=== PATIENT | female | born 1955 | race Caucasian/White ===

== ENCOUNTER → 2017-10-12 | Outpatient (CLI) | payer OTHER ==
--- NOTE | 2017-10-13 02:42 | MRI ---
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 PROCEDURE: MR LUMBAR SPINE WITHOUT IV CONTRAST. INDICATION: LOW BACK PAIN. COMPARISON: None. TECHNIQUE: Multiplanar T1 and T2 MRI images of the lumbar spine were acquired without administration of intravenous contrast. FINDINGS: The lumbar vertebral bodies demonstrate normal height and stature. There is 4 mm anterolisthesis of L4 on L5 which is likely degenerative given facet arthropathy. Mild intervertebral disc space height loss at L1-L3 and L4-L5. Normal marrow signal. The conus terminates at the level of L1-L2. The cauda equina nerve roots are unremarkable. The partially visualized thoracic cord is normal. L1-L2: Mild disc bulge without spinal canal stenosis. No significant neural foraminal stenosis. L2-L3: No spinal canal or neural foraminal stenosis. Mild bilateral facet arthropathy. L3-L4: No spinal canal or neural foraminal stenosis. Mild/moderate bilateral facet arthropathy. L4-L5: Grade 1 anterolisthesis of L4 on L5 with pseudodisc bulge and ligamentous hypertrophy. There is mild narrowing of the spinal canal. Severe bilateral facet arthropathy with soft tissue edema surrounding the left facet joint. No significant foraminal stenosis. L5-S1: Disc bulge without spinal canal stenosis. Mild bilateral facet arthropathy resulting in mild left foraminal narrowing. No significant right foraminal stenosis. The common bile duct is mildly dilated measuring up to 8 mm. The remainder of the partially visualized abdominopelvic organs are unremarkable. IMPRESSION: Mild multilevel degenerative changes of the lumbar spine most pronounced at L4-L5 where there is grade 1 anterolisthesis and severe bilateral facet arthropathy. Soft tissue edema seen adjacent to the left facet joint. Mild left foraminal narrowing at L5-S1. Mild spinal canal narrowing L4-L5. Electronically signed by: Jason Enriquez MD 10/13/2017 2:[address] [facility]
== END | disposition home or self-care (01) ==
LOC: MRI 10:04
PROVIDERS: ATTEND General Practice
DX: M51.37 Other intervertebral disc degeneration, lumbosacral region (principal)

== ENCOUNTER → 2019-05-30 | Outpatient (CLI) | payer OTHER ==
--- NOTE | 2019-05-30 14:01 | MRI ---
Study: MRI of the Left Knee. Indication: M23.92 Technique: Multiplanar, multi sequence MRI of the left knee was obtained without intravenous contrast. Comparison: None. Findings: ACL, PCL, MCL, and lateral collateral ligament complex intact. High-grade radial tearing posterior root attachment medial meniscus with near complete transection. Scattered degenerative change throughout the lateral meniscus without tear. Grade 3 chondral thinning and surface irregularity throughout the medial compartment. Grade 2 and mild grade 3 chondrosis throughout the lateral compartment. Tendinosis quadriceps tendon insertion with mild interstitial fissuring. Patella normally located. Grade 4 chondral loss throughout the majority of the patellar apex extending into the medial and lateral facets with patchy cortical remodeling and subchondral cystic change. Moderate size knee effusion. No acute fracture. Small Gutierrez's cyst. Impression: High-grade radial tearing posterior root attachment medial meniscus. Grade 3 chondrosis throughout the medial compartment with grade 2/3 changes of the lateral compartment. Tendinosis and mild interstitial fissuring quadriceps insertion. Extensive grade 4 chondral loss and cortical remodeling of the midline patella. Moderate size knee effusion. Electronically signed by: Noah Díaz MD 05/30/2019 1:59 PM CDT
== END ==
LOC: MRI 10:00
PROVIDERS: ATTEND Nurse Practitioner Family
DX: M23.92 Unspecified internal derangement of left knee (principal); S83.242A Other tear of medial meniscus, current injury, left knee, initial encounter; M93.962 Osteochondropathy, unspecified, left lower leg; M76.892 Other specified enthesopathies of left lower limb, excluding foot; M77.9 Enthesopathy, unspecified

== ENCOUNTER → 2019-06-19 | Outpatient (CLI) | payer OTHER ==
--- NOTE | 2019-06-20 20:41 | MAM ---
EXAM DESCRIPTION: 3D Screening BILATERAL : Digital Mammography. CLINICAL HISTORY: 64 years Female ANNUAL SCREENING . No complaints. No personal or family history of breast cancer. Childbirth. Postmenopausal 20+ years no HRT. Lifetime risk of developing breast cancer (Tyrer-Cuzick model)(%): 4.9. COMPARISON: Baseline study at this facility. No prior reports available. TECHNIQUE: Bilateral CC and MLO projection full-field images, digital tomosynthesis mammographic technique. Bilateral digital 2-D full-field MLO images. CAD not available for tomosynthesis or 2-D images. FINDINGS: The breast parenchymal density pattern is: Scattered areas of fibroglandular density. No skin thickening or nipple retraction. Bilateral solitary microcalcifications. Bilateral vascular calcifications. Irregular nodule in the lateral aspect of the middle third of the left breast approximately 3:00 position and 7 cm from the nipple. Posterior lymph node right breast. No new focal, stellate mass or density, focal asymmetry , and no suspicious microcalcifications right breast. IMPRESSION: BI-RADS CATEGORY: 0 - INCOMPLETE- Need additional imaging evaluation. FOLLOW-UP: Recall for additional imaging: Targeted left breast ultrasound of the region of interest. Optional diagnostic digital tomosynthesis if indicated by ultrasound findings.. Written communication concerning the IMPRESSION and Follow-up, will be mailed to the patient and referring health care provider. Electronically signed by: Chris Hernandez MD 06/20/2019 8:40 PM CDT
== END ==
LOC: MAMMO 09:17
PROVIDERS: ATTEND Nurse Practitioner Family
DX: Z12.31 Encounter for screening mammogram for malignant neoplasm of breast (principal)

== ENCOUNTER → 2019-06-22 | Outpatient (CLI) | payer OTHER ==
--- NOTE | 2019-06-22 11:09 | RAD ---
EXAM DESCRIPTION: Pelvis, single view CLINICAL HISTORY: PAIN IN LEFT HIP FINDINGS/ IMPRESSION: No fracture of the proximal femora or pelvis. Mild osteoarthritis of the bilateral sacroiliac joints and pubic symphysis Normal mineralization. No lytic or blastic bony lesion. Degenerative changes are present in the lower lumbar spine facet joints Electronically signed by: Uriel Ramsey MD 06/22/2019 11:07 AM CDT
--- NOTE | 2019-06-22 11:10 | RAD ---
EXAM DESCRIPTION: Left knee, 4 radiographs CLINICAL HISTORY: PAIN IN LEFT KNEE FINDINGS/ IMPRESSION: Small marginal osteophytes tricompartmental. No advanced arthrosis or acute osteochondral lesion femorotibial. A subchondral lucency measuring 4 to 5 mm of the dorsal patella seen on the lateral projection likely chronic osteochondral lesion/cyst Small suprapatellar joint effusion. Normal mineralization. No fracture Electronically signed by: Uriel Ramsey MD 06/22/2019 11:08 AM CDT
== END ==
LOC: RAD 08:28
PROVIDERS: ATTEND Orthopaedic Surgery
DX: M25.762 Osteophyte, left knee (principal); M22.92 Unspecified disorder of patella, left knee; M25.462 Effusion, left knee; M47.896 Other spondylosis, lumbar region; M47.898 Other spondylosis, sacral and sacrococcygeal region; M25.552 Pain in left hip

== ENCOUNTER → 2019-07-05 | Outpatient (CLI) | payer OTHER ==
--- NOTE | 2019-07-06 09:37 | US ---
EXAM DESCRIPTION: Breast,Left: Ultrasound CLINICAL HISTORY: 64 yearsFemaleABNORMAL MAMMO . Irregular nodule lateral middle third left breast on bilateral screening breast tomosynthesis. Lifetime risk of developing breast cancer (Tyrer-Cuzick model)(%): Not calculated COMPARISON: Bilateral screening digital breast tomosynthesis 06/19/2019. TECHNIQUE: Transcutaneous scanning of the left breast utilizing cantu-scale and Doppler modes. Scanning performed by the harness brusher and Dr. Hernandez. FINDINGS: Ultrasound: Scanning of the lateral left breast with emphasis on the upper outer quadrant. Circumscribed soft tissue mass measuring 5.2 x 3.3 x 4.4 mm with large echogenic homogeneous component with minimal vascularity. Questionable outgrowth of the hypoechoic capsule. This is elongated hypoechoic region measures approximately 7 mm. Most likely a lymph node but close follow-up should BE considered. IMPRESSION: BI-RADS CATEGORY: 3 - PROBABLY BENIGN. Management: Short interval (6-month) diagnostic left breast tomosynthesis and targeted left breast ultrasound. The FINDINGS and the FOLLOW-UP plan were reviewed in person with the patient after the examination. Written communication explaining the IMPRESSION and FOLLOW-UP will be mailed to the patient and referring care provider. Electronically signed by: Chris Hernandez MD 07/06/2019 9:35 AM CDT
== END ==
LOC: MAMMO 12:30
PROVIDERS: ATTEND Nurse Practitioner Family
DX: R92.8 Other abnormal and inconclusive findings on diagnostic imaging of breast (principal)

== ENCOUNTER 2019-09-05 05:49 | Day surgery (SDC) | payer OTHER ==
--- NOTE | 2019-08-14 11:27 | RAD ---
EXAM DESCRIPTION: Chest,2 Views CLINICAL HISTORY: 64 years Female, Pre Op COMPARISON: None. IMPRESSION: The heart is enlarged, without failure. Atherosclerosis in the thoracic aorta. The lungs are hyperexpanded. There is no airspace consolidation, pleural effusion, or pneumothorax. No acute osseous abnormality. Electronically signed by: Oscar Zheng MD 08/14/2019 11:26 AM CDT
--- NOTE | 2019-09-01 09:36 | HP ---
CHIEF COMPLAINT: Left knee pain. HISTORY OF PRESENT ILLNESS: Jimena is a 64-year-old female with a history of left knee pain that has been going on for about 4 to 5 months. This was acute in onset. She currently has pain that seems to be most prominent along the medial aspect. She has had conservative measures, however, has failed to gain relief. Her pain is a pretty consistent 3 on the pain scale, although it does radiate higher. She has no neurologic symptoms associated with this. Aggravating factors include weightbearing and range of motion. Alleviating factors include rest and anti-inflammatories, although this is not complete. She does also have clicking in the knee. We discussed risks, benefits and alternatives to operative therapy. After discussing that, she has given informed consent for knee arthroscopy. PAST SURGICAL HISTORY: 1. Hysterectomy. 2. Cholecystectomy. 3. Gastric bypass. MEDICATIONS: 1. Quetiapine. 2. Meloxicam. 3. Nexium. PAIN CONTRACT: None. ALLERGIES: NO KNOWN DRUG ALLERGIES. CODE STATUS: Full code. IMMUNIZATIONS: Up to date. SOCIAL HISTORY: The patient does not use alcohol or recreational drugs. She does smoke. FAMILY HISTORY: None pertinent to today's complaint. REVIEW OF SYSTEMS: Negative except for GERD, anxiety, foot cramps and hypertension. Otherwise, negative as indicated in the History of Present Illness. HEENT: The patient reports no symptoms. RESPIRATORY: The patient reports no symptoms. CARDIOVASCULAR: The patient reports no symptoms. GASTROINTESTINAL: The patient reports no symptoms GENITOURINARY: The patient reports no symptoms. MUSCULOSKELETAL: Negative except as noted in History of Present Illness. SKIN: The patient reports no symptoms. NEUROLOGIC: The patient reports no symptoms. PHYSICAL EXAMINATION: VITAL SIGNS: Blood pressure 150/82. Pulse 60. Height 5'6". Weight 291 pounds. BMI 35. MENTAL STATUS: The patient is awake, alert, and is able to give a good history and participate in the physical. The patient is oriented to person, place and time. SKIN: Normal tone and turgor. HEENT: Normocephalic, atraumatic. Pupils equal, round and reactive. Mucosal membranes are moist. NECK: Normal range of motion. No thyromegaly, no lymphadenopathy. CHEST: Normal respiratory excursion. CARDIAC: Regular rate and rhythm. No murmurs, rubs or gallops. MUSCULOSKELETAL: Bilateral upper extremities show full active range of motion without pain. She has intact sensation in both extremities and they are warm and well perfused. She has no crepitus, no malalignment and no deformity. She has intact skin in both upper extremities. Right lower extremity shows full range of motion of the hip, knee, ankle and digits. She has no pain, crepitus, malalignment or deformity. She has no varus or valgus of the knee. She has a negative anterior and negative posterior drawer. Strength is 5/5. Skin is intact. The left lower extremity shows full range of motion of the hip that is painless. She has severe pain to palpation on the medial aspect of the knee. She has intact sensation in the extremity. She walks with a slight antalgic gait. There is no varus or valgus laxity, no deformity or malalignment in the extremity. She has no significant effusion today. Strength is 5/5. Skin is intact in both lower extremities. RADIOLOGY: MRI shows a tear of the medial meniscus. She also has some arthritic changes. ASSESSMENT: 1. Medial meniscus tear. 2. Osteoarthritis. PLAN: The plan at this point is for knee arthroscopy. We have discussed the risks, benefits, and alternatives to that and the patient has given informed consent. #[id number] [facility]
[2019-09-05] MEDS ORDERED: ONDANSETRON INJ 4 MG/2 ML VIAL IV ONE (10:00)
[2019-09-05] MEDS ORDERED: PROPOFOL 200 MG/20 ML VIAL IV ONE (10:00)
[2019-09-05] MEDS ORDERED: LIDOCAINE 1% 10 ML VIAL INJ ONE (10:00)
[2019-09-05] MEDS ORDERED: KETOROLAC TROMETHAMINE INJ 30 MG/ML VIAL IV ONE (10:00)
[2019-09-05] MEDS ORDERED: ceFAZolin SODIUM 1 GM VIAL ONE ×3 (11:04→14:00)
[2019-09-05] MEDS ORDERED: LACTATED RINGERS 1,000 ML ONE (11:04)
[2019-09-05] MEDS ORDERED: SODIUM CHL 0.9% 100ML MINI-BAG 100 ML IVPB ONE (11:04)
[2019-09-05] MEDS ORDERED: BUPIVACAINE LIPOSOME 13.3 MG/ML VIAL INJ ONE ×2 (12:10→14:08)
[2019-09-05] MEDS ORDERED: VANCOMYCIN HCL INJ 1,000 MG VIAL IVPB ONE (12:10)
[2019-09-05] MEDS ORDERED: fentaNYL CITRATE INJ 50 MCG/ML AMP ONE (13:15)
[2019-09-05] MEDS ORDERED: MIDAZOLAM INJ 2 MG/2 ML VIAL ONE (13:15)
[2019-09-05] MEDS: BUPIVACAINE 0.5% 30 ML VIAL INJ ONE ×2 (13:30→14:12)
[2019-09-05] MEDS: MORPHINE SULFATE INJ 10 MG/ML VIAL ONE ×3 (14:33→14:43)
[2019-09-05] MEDS ORDERED: HYDROcodone 5MG/APAP 325MG 1 EA TAB ONE (15:41)
[2019-09-05 16:30] VITALS: BP 145/75; TEMP 98.9; O2SAT 97
--- NOTE | 2019-09-07 08:20 | OP ---
DATE OF PROCEDURE: 09/05/19. PREOPERATIVE DIAGNOSIS: 1. Meniscus tear. 2. Chondromalacia. POSTOPERATIVE DIAGNOSIS: 1. Medial meniscus tear. 2. Osteoarthritis of the medial compartment. 3. Osteoarthritis of the patellofemoral compartment. PROCEDURE: 1. Partial medial meniscectomy. 2. Debridement. SURGEON: Devin Avina MD. PERSONNEL RECRUITER: Chris Pacheco CST, SA-C. ANESTHESIA: General anesthesia. COMPLICATIONS: None. FINDINGS: 1. Complex tear of the medial meniscus involving the body extending posteriorly. 2. Full thickness cartilage loss in the medial femoral region. 3. Normal anterior cruciate ligament. 4. Normal posterior cruciate ligament. 5. Softening of the lateral compartment cartilage. 6. Normal lateral gutter. 7. Full thickness cartilage loss at the patellofemoral joint. 8. Normal suprapatellar pouch. 9. Normal medial gutter. INDICATION: Jimena has had pain that has been refractory to conservative measures. Because of her pain and ongoing symptoms, we discussed the risks, benefits and alternatives to operative therapy. She gave informed consent for that. PROCEDURE: The patient was brought to the Operating Room and placed in supine position. General anesthesia was induced and the patient's leg was sterilely prepped and draped. Following prepping and draping, standard anteromedial and anterolateral portals were established. Diagnostic arthroscopy was carried out with the above findings. Following the diagnostic arthroscopy, attention was focused on the medial meniscus. A 3.5 mm full radius shaver was used to debride the medial meniscus. Following that, the shaver was used to debride the medial femoral compartment as well as the patellofemoral compartment, which was accessed through the medial portal. The wound was very thoroughly irrigated and closed with Nylon suture after draining of the knee. Sterile dressings were placed. The patient was awoken from anesthesia and taken to Recovery. POSTOPERATIVE PLAN: The patient will be non-weightbearing until followup with us in two days. #[id number] [facility]
== END 2019-09-05 16:25 | disposition home or self-care (01) ==
LOC: AMB 05:49
PROVIDERS: ATTEND Orthopaedic Surgery
DX: S83.232A Complex tear of medial meniscus, current injury, left knee, initial encounter (principal); M17.12 Unilateral primary osteoarthritis, left knee; E78.5 Hyperlipidemia, unspecified; K21.9 Gastro-esophageal reflux disease without esophagitis; F31.9 Bipolar disorder, unspecified; E53.9 Vitamin B deficiency, unspecified; Z90.710 Acquired absence of both cervix and uterus; Z98.84 Bariatric surgery status; Z90.49 Acquired absence of other specified parts of digestive tract; Z79.899 Other long term (current) drug therapy
CPT/HCPCS: 01400; 29881; 36415; 36416; 71046; 80048; 80307; 81001; 85025; 87070; 93005; J0690; J1885; J2250; J2270; J2405; J3010; J3370; J3490; J7050; J7120

== ENCOUNTER → 2019-09-29 | Outpatient (CLI) | payer OTHER ==
--- NOTE | 2019-09-29 12:57 | RAD ---
EXAM DESCRIPTION: Pelvis CLINICAL HISTORY: 64 years Female, PAIN IN LEFT HIP COMPARISON: None. TECHNIQUE: AP radiograph of the pelvis was performed. FINDINGS: The pelvic ring appears grossly intact on this single AP radiograph. Bilateral sacroiliac joints demonstrate mild degenerative changes. Bilateral hip joints also demonstrate moderate degenerative changes. The visualized lumbo-sacral spine demonstrates mild degenerative changes. A partially calcified lesion projecting over the left hemipelvis could represent a calcified uterine myoma. IMPRESSION: Single AP radiograph of the pelvis demonstrates grossly intact pelvic ring. Electronically signed by: Jorge Vera MD 09/29/2019 12:55 PM TRIPLE DRUM OPERATOR
--- NOTE | 2019-09-29 12:58 | RAD ---
EXAM DESCRIPTION: Hip,Left 2 Views CLINICAL HISTORY: 64 years Female, PAIN IN LEFT HIP COMPARISON: None available. FINDINGS: Mild diffuse osteopenia of the visualized bones noted. No acute fracture or dislocation. The femoral head is well contained in the acetabular fossa. Moderate osteoarthritic changes noted involving the left hip joint. The overlying soft tissues appear grossly unremarkable. IMPRESSION: 1. No acute fracture or dislocation. 2. Moderate osteoarthritic changes of the left hip joint. Electronically signed by: Jorge Vera MD 09/29/2019 12:57 PM [facility]
== END ==
LOC: RAD 08:01
PROVIDERS: ATTEND Orthopaedic Surgery
DX: M16.12 Unilateral primary osteoarthritis, left hip (principal)

== ENCOUNTER → 2019-10-05 | Outpatient (CLI) | payer OTHER ==
--- NOTE | 2019-10-05 15:12 | MRI ---
MRI left hip without contrast INDICATION: Hip pain muscle injury symptoms x1 year lifting injury TECHNIQUE: Noncontrast MR imaging left hip FINDINGS: Focal fluid/cystic change along the obturator externus and iliopsoas region anterior left hip most likely para labral cyst. This measures up to 13 mm in diameter reference axial series 201 image 25. There is also cam morphology femoral neck indicating cam-type femoral acetabular impingement. Additional cystic change is noted anteriorly above the left hip axial series 201 image 34 along the iliopsoas tendon sheath/bursa. Interstitial fissuring and tendinopathy of the gluteal tendons without complete rupture or retraction. Trace greater trochanteric bursal edema. No advanced arthrosis of the hips. Mild cystic change anterior superior acetabulum right hip. No sacroiliitis. Diffuse anterior superior labral tear left hip on the sagittal images related to the para labral cyst. No osteonecrosis or fracture. IMPRESSION: Diffuse anterior superior labral tear left hip with multilocular para labral cysts Mild trochanteric bursitis and gluteal tendinopathy No hamstring rupture or retraction No fracture or osteonecrosis Cam-type femoral acetabular impingement Electronically signed by: Abilio Roberson MD 10/05/2019 3:10 PM RN HOUSE SUPERVISOR
== END ==
LOC: MRI 14:00
PROVIDERS: ATTEND Orthopaedic Surgery
DX: S73.192A Other sprain of left hip, initial encounter (principal); M71.352 Other bursal cyst, left hip; M25.852 Other specified joint disorders, left hip

== ENCOUNTER → 2019-11-20 | Outpatient (CLI) | payer OTHER | LOC: LAB.O 08:16 | PROVIDERS: ATTEND Orthopaedic Surgery | DX: Z01.818 Encounter for other preprocedural examination (principal) ==

== ENCOUNTER → 2020-03-06 | Outpatient (CLI) | payer OTHER ==
--- NOTE | 2020-03-07 15:30 | US ---
EXAM DESCRIPTION: 3D Diagnostic, Left (accession [id number]), Breast,Left (accession [id number]): Ultrasound CLINICAL HISTORY: 65 yearsFemaleABNORMAL AND INCONCLUSIVE FINDINGS ON DIAGNOSTIC IMAGINE . Six-month follow-up for mass density left breast.. No palpable mass. No personal or family history of breast cancer. Menarche age 13. Childbirth age 19. Menopause age 43. No HRT. Lifetime risk of developing breast cancer (Tyrer-Cuzick model)(%): 4.7. COMPARISON: Bilateral screening digital breast tomosynthesis May 2019 and diagnostic left breast ultrasound June 2019. TECHNIQUE: Left LM, CC, and MLO projection full-field images, digital tomosynthesis technique. Left 2-D digital full-field images: LM, CC, and MLO projections CAD available for 2-D images.. Transcutaneous scanning of the left breast utilizing cantu-scale and Doppler modes. Scanning performed by the linseed oil order filler with observation by Dr. Hernandez. FINDINGS: The breast parenchymal density pattern is: Scattered areas of fibroglandular density. No skin thickening or nipple retraction vascular calcifications. Solitary microcalcifications. Lobular mass density middle third left breast 2:30 clock position 8 cm from the nipple. No new focal, stellate mass or density, focal asymmetry , and no suspicious microcalcifications left breast Ultrasound: Scanning lateral left breast at the region of interest. Mostly fatty echotexture. Circumscribed object consistent with a lymph node with hypoechoic cortex and central echogenicity and mixed posterior acoustic changes. Nonvascular. Wider than tall orientation. Long axis I.2 cm. No dominant solid mass or distinct cyst. No large calcifications or fluid collection. No overlying skin changes.. IMPRESSION: Benign exam. BIRAD CATEGORY: 2 BENIGN FINDINGS. RECOMMENDATIONS: FOLLOW UP: Return to routine digital bilateral mammographic screening, May 2020. Written communication explaining the IMPRESSION and follow-up, will be mailed to the patient and referring health care provider. The FINDINGS and the FOLLOW-UP plan were reviewed in person with the patient after the examination. According to the [employer], yearly mammograms are recommended starting at age 40 and continuing as long as a woman is in good health. Any breast change noted on a breast self-exam should be reported promptly to the patient's healthcare provider. Breast MRI is recommended for women with an approximately 20-25% or greater lifetime risk of breast cancer, including women with a strong family history of breast or ovarian cancer and women who have been treated for Hodgkin's disease. A negative mammographic report should not delay tissue diagnosis in patients with significant clinical history or physical findings. Extremely dense breast tissue limits the sensitivity of digital mammography. Electronically signed by: Chris Hernandez MD 03/07/2020 3:28 PM CDT
== END ==
LOC: MAMMO 10:05
PROVIDERS: ATTEND Nurse Practitioner Family
DX: R92.8 Other abnormal and inconclusive findings on diagnostic imaging of breast (principal)
CPT/HCPCS: 76641; 77065; G0279

== ENCOUNTER 2020-09-17 06:45 | Day surgery (SDC) | payer OTHER ==
[~2020-09-17 06:45] MED LIST: SODIUM CHLORIDE 0.9% (FLUSH) 10 ML SYG ONE
[2020-09-17] MEDS ORDERED: LIDOCAINE 1% 10 ML VIAL INJ ONE (06:46)
[2020-09-17] MEDS ORDERED: SODIUM CHLORIDE 0.9% 50 ML VIAL INJ ONE (06:46)
[2020-09-17] MEDS ORDERED: PROPOFOL 200 MG/20 ML VIAL IV ONE (06:46)
[2020-09-17] MEDS ORDERED: LIDOCAINE 1% W/ EPINEPHRINE 20 ML VIAL INJ ONE (06:58)
[2020-09-17] MEDS ORDERED: methylPREDNISolone ACETATE 80 MG/ML VIAL ONE (06:58)
[2020-09-17] MEDS ORDERED: BUPIVACAINE 0.25% INJ 30 ML VIAL INJ ONE (06:58)
[2020-09-17] MEDS ORDERED: LACTATED RINGERS 1,000 ML IVS ONE (07:00)
[2020-09-17 08:44] VITALS: BP 117/44; TEMP 98.6; O2SAT 98
--- NOTE | 2020-09-27 11:31 | OP ---
DATE OF PROCEDURE: 09/17/20 PREOPERATIVE DIAGNOSIS: 1. Osteoarthritis of the right hip. POSTOPERATIVE DIAGNOSIS: 1. Osteoarthritis of the right hip. PROCEDURE: 1. Right hip injection under anesthesia. SURGEON: Devin Avina MD. ETHANOL MAINTENANCE MECHANIC: Chris Pacheco CST, SA-C. ANESTHESIA: Conscious sedation. COMPLICATIONS: None. INDICATION: Jimena has a history of pain in the hip and has failed more conservative measures. Because of her ongoing pain, she has requested operative intervention. After discussing the risks, benefits and alternatives to operative therapy, the patient has given informed consent for injection. PROCEDURE: The patient was brought to the Operating Room and placed in supine position. Conscious sedation was administered and the leg was flexed, abducted and externally rotated. The groin was prepped and fluoroscopic imaging was used to confirm needle placement into the hip joint through a medial portal. Once placement had been confirmed, a combination of lidocaine and Depo-Medrol were injected into the joint. After injection, the needle was withdrawn. Pressure was held on the injection site. A sterile band-aid was placed. The patient was then taken back to the Day Surgery Unit. POSTOPERATIVE PLAN: The patient will be weight-bearing as tolerated. The patient will followup with us in 2 weeks. #[id number] [facility]
== END 2020-09-17 08:39 | disposition home or self-care (01) ==
LOC: AMB 06:45
PROVIDERS: ATTEND Orthopaedic Surgery
DX: M16.11 Unilateral primary osteoarthritis, right hip (principal); K21.9 Gastro-esophageal reflux disease without esophagitis; F32.9 Major depressive disorder, single episode, unspecified; E78.5 Hyperlipidemia, unspecified; F41.9 Anxiety disorder, unspecified; I10 Essential (primary) hypertension; F17.210 Nicotine dependence, cigarettes, uncomplicated; Z98.84 Bariatric surgery status; Z90.710 Acquired absence of both cervix and uterus; Z79.899 Other long term (current) drug therapy
CPT/HCPCS: 01200; 20610; 80307; A4216; J1030; J3490; J7120